=== PATIENT | male | born 1975 | race American Indian/Alaskan Native ===

== ENCOUNTER 2020-05-08 10:39 | Outpatient (CLI) | payer BC, OTHER ==
--- NOTE | 2020-05-08 12:34 | Fluoroscopy Report ---
UPPER GI HISTORY: FUNCTIONAL DYSPEPSIA. TECHNIQUE: Single and double contrast barium technique utilized to evaluate the esophagus, stomach, and duodenal C-loop. FINDINGS: To begin the exam, swallowing was evaluated in the lateral position under direct fluorosco py. Swallowing was normal. No mucosal irregularity, mass, mass effect, or critical stenosis. There were no abnormal tertiary c ontractions as seen with dysmotility. No hiatal hernia. Occasional episodes of gastroesophageal reflu x to the proximal esophagus was witnessed throughout this exam. IMPRESSION: [id number]-vr-[id number] gastroesophageal reflux. Fluoroscopic time: 2.6 minutes Number of fluoroscopic images: 14 Signer Name: Jasbir Braun Jr, MD Signed: 05/08/2020 12:29 PM Workstation Name: [id number]
== END 2020-05-08 10:40 | disposition home or self-care (01) ==
LOC: FLUORO 10:39
PROVIDERS: ATTEND Surgery
DX: K21.9 Gastro-esophageal reflux disease without esophagitis (principal)
CPT/HCPCS: 74246

== ENCOUNTER 2020-05-10 11:00 | Outpatient (CLI) | payer BC | END 2020-05-10 11:01 | disposition home or self-care (01) | LOC: SLR 11:00 | PROVIDERS: ATTEND Surgery | DX: G47.33 Obstructive sleep apnea (adult) (pediatric) (principal); R40.0 Somnolence; E66.9 Obesity, unspecified | CPT/HCPCS: G0399 ==

== ENCOUNTER 2020-06-05 09:56 | Day surgery (SDC) | payer BC ==
[2020-06-05] MEDS ORDERED: SODIUM CHLORIDE 0.9% 1000 ML 1,000 ML ONE (10:54)
[2020-06-05] MEDS ORDERED: SODIUM CHLORIDE 0.9% 1000 ML 1,000 ML IV SCH (11:15)
--- NOTE | 2020-06-05 11:36 | Anesthesia Day of Surgery ---
Anesthesia Day of Surgery - Day of Surgery Patient Examined: Yes Patient H&P Reviewed: Yes Patient is NPO: Yes
--- NOTE | 2020-06-05 11:37 | Anesthesia Consultation ---
Anesthesia Consult and Med Hx Date of service: 06/05/20 - Airway Anesthetic Teeth Evaluation: Good ROM Head & Neck: Adequate Mental/Hyoid Distance: Adequate Mallampati Class: Class II Intubation Access Assessment: Good - Pre-Operative Health Status ASA Pre-Surgery Classification: ASA3 Proposed Anesthetic Plan: MAC - Pulmonary Hx Smoking: No Hx Respiratory Symptoms: No Hx Sleep Apnea: No (Denies) - Cardiovascular System Hx Hypertension: Yes Hx Peripheral Vascular Disease: Yes (Enlarged aorta) - Gastrointestinal Hx Gastroesophageal Reflux Disease: No - Endocrine Hx Renal Disease: No Hx Liver Disease: No Hx Non-Insulin Dependent Diabetes: No - Hematic Hx Sickle Cell Disease: No - Other Systems Hx Obesity: Yes
[2020-06-05] MEDS ORDERED: propofoL 200 MG/20 ML VIAL IV ONE (13:36)
--- NOTE | 2020-06-05 13:36 | Discharge Summary ---
Providers - Providers Date of Admission: 06/05/2020 Date of discharge: 06/05/20 Attending physician: JEET MEDINA MD Primary care physician: HOME ENERGY CONSULTANT Hospitalization Reason for admission: egd as pre-op work prior to bariatric surgery Condition: Good Procedures: egd with biopsy Hospital course: Pt presented for a pre-op EGD as part of planning for up coming bariatric surgery. Procedure was uneventful and pt recovered well and was discharged to home. Disposition: DC-01 TO HOME OR SELFCARE Core Measure Documentation - Palliative Care Palliative Care/ Comfort Measures: Not Applicable - Core Measures Any of the following diagnoses?: none Exam - Physical Exam Narrative exam: unchanged from pre-op - Constitutional Vitals: Temp Pulse Resp BP Pulse Ox 98.4 F 70 14 135/76 98 06/05/20 10:55 06/05/20 10:55 06/05/20 10:55 06/05/20 10:55 06/05/20 10:55 Plan Activity: advance as tolerated Diet: low carbohydrate Follow up with: TAMIKA BRODY MD [Primary Care Provider] - 7 Days
--- NOTE | 2020-06-05 13:38 | Operative Report ---
Operative Report Operative Report: DATE: 06/05/2020 SURGERY: Upper endoscopy. SURGEON: Abimbola Clemente M.D. PROCEDURE: EGD with biopsy PRE OP DX: morbid obesity, GERD POST OP DX: morbid obesity, GERD TYPE OF ANESTHESIA: MAC. ESTIMATED BLOOD LOSS: None. COMPLICATIONS: None. SPECIMENS REMOVED: antral biopsy FINDINGS: 1. Small hiatal hernia. 2. antral gastritis INDICATIONS:INDICATION FOR PROCEDURE: Patient is a 45-year-old male with a long history of morbid obesity. he is planned to have a weight loss procedure and is here for preoperative planning EGD. PROCEDURE DETAILS: After consent was reviewed, patient was taken back to the operating room where patient was placed in the left lateral decubitus position and a bite block was placed in the mouth. After a time-out was called, MAC anesthesia was initiated. I then passed the endoscope into her oropharynx, into her esophagus, visualized the entire esophagus, which was all within normal limits. Z-line was noted to about 40cm from incisors. I then visualized the stomach and the first portion of the duodenum and there were no abnormalities I could clearly visualize with the exception of antral gastritis. A cold forceps biopsy of the antrum was taken and will be sent to pathology to evaluate for H.pylori. I then retroflexed the scope in the stomach and visualized the hiatus and I could see a small hiatal hernia. I then desufflated the stomach and removed the endoscope. Patient tolerated procedure well and was transferred to recovery room in good and stable condition.
[2020-06-05 14:21] VITALS: BP 122/76
--- NOTE | 2020-06-05 16:27 | Post Anesthesia Evaluation ---
- Post Anesthesia Evaluation Patient Participated: Yes Airway Patent: Yes Stable Respiratory Function: Yes Nausea/Vomiting: No Temp > 96.8F: Yes Pain Manageable: Yes Adequeate Hydration: Yes Anesthesia Complications: No Block Receding Appropriately: Not Applicable Patient on Ventilator: No
== END 2020-06-05 14:35 | disposition home or self-care (01) ==
LOC: GIO 09:56
PROVIDERS: ATTEND Surgery
DX: K21.9 Gastro-esophageal reflux disease without esophagitis (principal); E66.01 Morbid (severe) obesity due to excess calories; K29.70 Gastritis, unspecified, without bleeding; I73.9 Peripheral vascular disease, unspecified; K44.9 Diaphragmatic hernia without obstruction or gangrene; I10 Essential (primary) hypertension; Z88.0 Allergy status to penicillin; Z68.39 Body mass index [BMI] 39.0-39.9, adult; Z79.899 Other long term (current) drug therapy
CPT/HCPCS: 43239; 88305; 88342; J2704; J7030

== ENCOUNTER 2020-06-25 06:04 | Inpatient (IN) | payer BC, OTHER ==
[2020-06-20 10:47] LABS: Hematocrit 44.3 % (35.5-45.6); Hemoglobin 15.2 gm/dl (11.8-15.2); Mean Corpuscular HGB Conc 34 % (32-34); Mean Corpuscular Volume 88 fl (84-94); Platelet Count 235 K/mm3 (140-440); Red Blood Count 5.05 M/mm3 (3.65-5.03); Red Cell Distribution Width 15.1 % (13.2-15.2)
--- NOTE | 2020-06-20 10:59 | Anesthesia Consultation ---
Anesthesia Consult and Med Hx Date of service: 06/25/20 - Airway Anesthetic Teeth Evaluation: Good ROM Head & Neck: Adequate Mental/Hyoid Distance: Adequate Mallampati Class: Class II Intubation Access Assessment: Probably Good - Pulmonary Exam CTA: Yes - Cardiac Exam Cardiac Exam: RRR - Pre-Operative Health Status ASA Pre-Surgery Classification: ASA3 Proposed Anesthetic Plan: General - Pulmonary Hx Smoking: No Hx Respiratory Symptoms: No Hx Sleep Apnea: Yes (moderate GILBERT on recent sleep study, not yet started on CPAP) - Cardiovascular System Hx Hypertension: Yes Hx Heart Attack/AMI: No Hx Percutaneous Transluminal Coronary Angioplasty (PTCA): No Hx Cardia Arrhythmia: No Hx Peripheral Vascular Disease: Yes (report hx "enlarged aorta," currently being monitored) - Central Nervous System CVA: No - Gastrointestinal Hx Gastroesophageal Reflux Disease: No - Endocrine Hx Renal Disease: No Hx Liver Disease: No Hx Insulin Dependent Diabetes: No Hx Non-Insulin Dependent Diabetes: No Hx Thyroid Disease: No - Other Systems Hx Obesity: Yes (BMI 40) - Additional Comments Anesthesia Medical History Comments: No prior [place]. No FHx anesthetic complications. 04/2020: EKG NSR. Stress test neg for ischemia, >10mets achieved. 05/2020: normal PFTs w/ mild decreased MVV.
[2020-06-20 11:12] LABS: Alanine Aminotransferase 22 units/L (7-56); Albumin 4.4 g/dL (3.9-5); BUN/Creatinine Ratio 11; Blood Urea Nitrogen 15 mg/dL (9-20); Calcium 9.4 mg/dL (8.4-10.2); Hemolysis Index 19
[~2020-06-25 06:04] MED LIST: ACETAMINOPHEN 1,000 MG/100 ML BOTTLE IV SCH; ACETAMINOPHEN 325 MG/10.15 ML ORAL LIQD UNIT DOSE PO NR; ENOXAPARIN 40 MG/0.4 ML INJ SUB-Q NR; GABAPENTIN 500 MG/10 ML ORAL LIQD PO NR; MIDAZOLAM 2 MG/2 ML INJ IV NR; SCOPOLAMINE TRANSDERMAL PATCH 72 HR TD NR; metroNIDAZOLE/NS 500 MG/100 ML 500 MG/100 ML BAG IV NR
[2020-06-25] MEDS: LACTATED RINGERS 1,000 ML IV SCH ×3 (06:50→21:51)
--- NOTE | 2020-06-25 07:09 | Anesthesia Day of Surgery ---
Anesthesia Day of Surgery - Day of Surgery Patient Examined: Yes Patient H&P Reviewed: Yes Patient is NPO: Yes
[2020-06-25] MEDS ORDERED: MAGNESIUM SULFATE 2 GM/50 ML BAG IV ONE (07:20)
[2020-06-25] MEDS ORDERED: SUGAMMADEX SODIUM 200 MG/2 ML VIAL IV ONE ×2 (07:20→07:21)
[2020-06-25] MEDS ORDERED: SODIUM CHLORIDE P/F VIAL 10 ML 10 ML ONE ×2 (07:26→07:28)
[2020-06-25] MEDS ORDERED: KETAMINE/STERILE WATER 50 MG/ML SYRINGE ONE (07:27)
[2020-06-25] MEDS ORDERED: HYDROmorphone 1 MG/1 ML INJ IV PRN (07:30)
[2020-06-25] MEDS ORDERED: ONDANSETRON 4 MG/2 ML INJ IV PRN ×2 (07:30→11:00)
[2020-06-25] MEDS ORDERED: LIDOCAINE (1%) 10 MG/1 ML VIAL 20 ML MDV ONE (07:35)
[2020-06-25] MEDS ORDERED: BUPIVACAINE/PF (0.5%) 5 MG/1 ML 10 ML VIAL INFILTRATI ONE (07:36)
[2020-06-25] MEDS ORDERED: ROCURONIUM 50 MG/5 ML INJ IV ONE ×2 (07:56→10:00)
--- OUTSIDE RECORDS SUMMARY | 2020-06-25 08:25 | External Medical Summary ---
:1975 Author Organization [facility], [facility] Address [address] [place] [address] Care Team Providers Name Role Phone Abimbola Clemente Unavailable [phone] PROBLEMS Type Condition ICD9-CM VGO25-MP Onset Condition W/U Status Risk SNOM ED Notes Code Code Dates Status Code Problem Body mass Z68.41 Active confirmed 359526297 index [BMI]40.0-44. 9, adult Problem Functional K30 Active confirmed 9291115 dyspepsia Problem Gastro-esopha K21.9 Active confirmed 265838 005 geal reflux disease without esophagitis Problem Dietary Z71.3 Active confirmed 019947232 counseling and surveillance Problem Essential I10 Active confirmed 65538619 (primary) hypertension Problem Sleep G47.9 Active confirmed 99294875 disorder, unspecified Problem Morbid E66.01 Active confirmed 499425815 (severe) obesity due to excess calories ALLERGIES Allergen (clinical drug Drug/Non Drug Allergy Reaction Allergy Type Onset Date Status ingredient) documented on EMR penicillin V Penicillin rash Drug Allergy Active ENCOUNTERS from 1975 to 2020-06-22 Encounter Location Date Provider Diagnosis [facility] [address] [place], Abimbola Clemente [address]bi [address] (severe) [address] obesity due to excess of [place], [place] calorie s E66.01 ; [address] Essential (prim rehan) hypertension I1 0 and Gastro-esophage al reflux disease without esophagitis K21 .9 IMMUNIZATIONS No Information SOCIAL HISTORY Sex Assigned At : Social History Observation Description Sex Assigned At Unknown REASON FOR REFERRAL from 1975 to 2020-06-22 Diagnosis 1 Morbid (severe) obesity due to excess calories (E66.01) Diagnosis 2 Essential (primary) hyperten bunny (I10) Diagnosis 3 Functional dyspepsia (K30) Diagnosis 4 Gastro-esophageal reflux dis ease without esophagitis (K21.9) Diagnosis 5 Sleep disorder, unspecified (G47.9) Diagnosis 6 Low back pain (M54.5) Diagnosis 7 Dietary counseling and surve illance (Z71.3) Diagnosis 8 Body mass index [BMI]40.0-44 .9, adult (Z68.41) Referral Organization [facility] Referring Provider First Name Abimbola Referring Provider Last Name Bryn Referring Provider Specialty Surgery Referred Provider [facility], - Referral Priority Routine VITAL SIGNS Height 73 in May, Weight 308.3 lbs May, Temperature 98.0 degrees Fahrenheit May, BMI 40.6 kg/m2 May, Blood pressure systolic 170 mm Hg May, Blood pressure diastolic 93 mm Hg May, MEDICATIONS Medication SIG (Take, Route, Notes Start Date End Date Status Frequency, Duration) Hydrocodone-Acetaminoph 15 ml as needed Orally May,May, Active en 7.5-325 MG/15ML every 6 hrs for 7 days NIFEdipine ER 60 MG 1 tablet on an empty Active stomach Orally Once a day for 30 day(s) Nexium 40 MG 1 capsule Orally Once a May, Active day for 30 day(s) Zofran 4 MG 1-2 tablet Orally q 4-6 May, Active hr prn nausea for 30 day(s) Losartan Potassium 100 1 tablet Orally Once a Active MG day for 30 day(s) PROCEDURES No Information RESULTS No Results REASON FOR VISIT PreOp Sleeve MEDICAL (GENERAL) HISTORY Type Description Date Medical History htn Medical History dyspepsia Medical History snoring Medical History claustrophobia Medical History kidney stones Surgical History No know Surgical history Hospitalization History for kidney stones Goals Section No Information Health Concerns No Information MEDICAL EQUIPMENT No Information MENTAL STATUS No Information FUNCTIONAL STATUS No Information ASSESSMENTS Encounter Date Diagnosis Assessment Notes Treatment Notes Treatm ent Clinical Notes May, Morbid (severe) An hour was spent obesity due to with patient excess calories reinforcing diet, (ICD-10 - E66.01) vitamin requirements and lifestyle education, A quiz was administered and reviewed to verify understanding of intended procedure and post operative care. Consent forms were reviewed with patient and signed answering all questions, Pre-operative labs were ordered. May, Essential (primary) Should resolve or hypertension greatly improve (ICD-10 - I10) with weight loss after bariatric surgery May, Gastro-esophageal Should improve reflux disease after weight loss without esophagitis surgery. will be (ICD-10 - K21.9) started on PPI PLAN OF TREATMENT Medication Medication Name Sig Start Date Stop Date Hydrocodone-Acetaminophen 15 ml as needed Orally every May, 2 021 May, 7.5-325 MG/15ML 6 hrs for 7 days Zofran 4 MG 1-2 tablet Orally q 4-6 hr May, prn nausea for 30 day(s) Nexium 40 MG 1 capsule Orally Once a day May, for 30 day(s) Treatment Notes Assessment Notes Clinical Notes Morbid (severe) obesity due to An hour was spent with patien t excess calories reinforcing diet, vitamin requirements and lifestyle education, A quiz was administered and reviewed to verify understanding of intended procedure and post operative care. Consent forms were reviewed with patient and signed answering all questions, Pre-operative labs were ordered. Essential (primary) hypertension Should resolve or greatly i mprove with weight loss after bariatric surgery Gastro-esophageal reflux disease Should improve after weight loss without esophagitis surgery. will be started on PPI Referrals Referral Date Details Next Appt Details Provider Name:Abimbola Clemente, 2020-05- 9 07:30:00 AM, [address], [address], [place], [address], [phone] Insurance Providers Payer Name Payer Payer Insured Patient Coverage Coverage End Address Phone Name Relationship to Start Date Christos e Insured [employer] [address] [facility] [employer] [id number] [facility]
[2020-06-25] MEDS ORDERED: SODIUM CHLORIDE P/F VIAL 10 ML 30 ML ONE (08:36)
[2020-06-25] MEDS ORDERED: PHENYLEPHRINE/NS 1,000 MCG/10 ML SYRINGE (OR USE) IV ONE ×3 (08:47→09:26)
[2020-06-25] MEDS ORDERED: propofoL 200 MG/20 ML VIAL IV ONE ×3 (09:15→10:22)
[2020-06-25] MEDS ORDERED: ePHEDrine SULFATE 50 MG/1 ML INJ ONE (09:27)
[2020-06-25] MEDS ORDERED: LACTATED RINGERS 1,000 ML ONE (09:36)
[2020-06-25] MEDS ORDERED: BUPIVACAINE-EPINEPHRINE/PF 0.5%-1:200,000 (30 ML) VIAL INFILTRATI ONE (09:39)
[2020-06-25] MEDS ORDERED: .SODIUM CHLORIDE 0.9% IRRIG SOLN 3000 ML IR ONE (09:40)
[2020-06-25] MEDS ORDERED: SODIUM CHLORIDE 0.9% P/F 10 ML VIAL INFILTRATI ONE (09:40)
[2020-06-25] MEDS ORDERED: LIDOCAINE (1%) 10 MG/1 ML VIAL 20 ML MDV INFILTRATI ONE (09:40)
[2020-06-25] MEDS ORDERED: LIDOCAINE MPF (2%) 20 MG/1 ML VIAL 5 ML ONE (09:58)
[2020-06-25] MEDS ORDERED: ONDANSETRON 4 MG/2 ML INJ ONE (09:59)
[2020-06-25] MEDS ORDERED: dexAMETHasone 20 MG/5 ML VIAL ONE (09:59)
[2020-06-25] MEDS ORDERED: METOCLOPRAMIDE 10 MG/2 ML INJ IV PRN (10:36)
--- NOTE | 2020-06-25 10:49 | Operative Report ---
Operative Report Operative Report: DATE:06/25/2020 Surgeon: Abimbola Clemente MD Chemical Preparer surgeon: Mckinley Springer CSA MD Pre-op Dx: morbid obesity, hiatal hernia Post-op Dx: morbid obesity, hiatal hernia Procedure: 1. laparoscopic sleeve gastrectomy, 2. hiatal hernia repair Anesthesia: GETA and TAP block EBL: <10ml Specimen: gastric remnant Complication: none immediate Indication: 45 year old male with a history of morbid obesity . Pt is here for sleeve gastrectomy for weight loss to achieve healthier weight and improve or resolve his co-morbidities. He expressed understanding of the risks and benefits. PROCEDURE IN DETAIL: After consent was reviewed, patient was taken back to the operating room, where patient was placed supine on the bed with both arms out. The patient's legs were doubly strapped to the bed. Patient had a foot board in place. Patient had a body warmer placed by anesthesia. General anesthesia was induced with successful endotracheal intubation. Patient was then prepped and draped in normal sterile surgical fashion. After a time-out was called, I made a stab incision in the left subcostal area and placed a Veress needle through this incision and insufflated the abdomen to 18 mmHg pressure. I then counted down a handsbreadth below the xiphoid process in the midline and slightly left lateral injected local anesthetic and made about 1 cm transverse incision. I then used a 5-mm Optiview trocar to enter into the abdomen. There was no gross injury to any intra-abdominal structures. I then placed a 30-degree scope through this port and inspected the abdomen. I then placed a 8-mm port in the right upper quadrant, and 1 5mm in the epigastric area below the costovertebral angle. I then placed a 15-mm port about a handsbreadth in the right mid abdomen. After which a 5mm port was placed in left upper quadrant port along the anterior axillary line in a similar fashion. A liver retractor was placed to the epigastric port to elevate the left lateral lobe and liver. There was a moderate sized hiatal hernia with the GE junction above the level of the diaphragm appreciated that was accentuated with right and left crural dissection. Hiatal hernia sac was dissected 360 degress around from the crura until the GE junction was resting about 2cm below the level of the diaphragm without tension. Anterior and posterior crura-plasties were preformed using U- stitches with surgidac suture. The anterior gastric fat pad was excised. Starting approximately 6 cm proximal to the pylorus, using a LigaSure device the short gastrics were taken all the way to the left caroline. Once the lateral portion of the stomach was mobile anesthesia passed a 40 Bel[place]ian bougie along the medial aspect to act as a stent. Using serial firings of endoscopic stapler to gold, followed by 4 blue, the lateral portion of the stomach was transected making sure to did not close to the 2 cm to the incisura. All staple loads were supported with Ethicon buttress strips. The sleeve stomach was seen to be without kink obstruction or twisting. The pressure was decreased to 10 mmHg. The staple line was inspected for approximately 5 minutes. There was no significant bleeding appreciated except for a slight loose at the most distal portion of the staple line. Bleeding was minimal and easily controlled with minimal cautery. Tisseel was then sprayed along the entirety of the staple line. The liver retractor was removed. A TAP block was performed with 60ml of 0.25% marcaine along bilateral mid axillary lines starting from the subcostal region to just below the level of the umbilicus This was after the gastric remnant was grasped and pulled into the 15 mm trocar site. The stomach was extracted via the 15 mm trocar site. After the fascia had to be stretched with a Nory clamp to easily remove the stomach, the fascia was closed using a melvin aundrea device at the level of the fascia with an 0 PDS. trocars were removed under direct visualization. All skin incisions were closed with 4-0 Monocryl followed by Dermabond. Patient was awoken, extubated, and taken to recovery stable condition. All counts were correct.
[2020-06-25] MEDS ORDERED: hydrALAZINE 20 MG/1 ML INJ IV PRN (11:00)
[2020-06-25] MEDS ORDERED: SIMETHICONE 80 MG CHEW TAB PO PRN (11:00)
[2020-06-25] MEDS: HYDROmorphone 1 MG/1 ML INJ IV PRN ×2 (11:08→11:29)
[2020-06-25] MEDS ORDERED: ACETAMINOPHEN 1,000 MG/100 ML BOTTLE IV SCH (13:12)
[2020-06-25] MEDS: ACETAMINOPHEN IV 1,000 MG/100 ML BOTTLE IV SCH ×2 (14:48→21:32)
[2020-06-25] MEDS: MORPHINE 2 MG/1 ML INJ IV PRN ×2 (14:49→20:11)
[2020-06-25] MEDS: metroNIDAZOLE/NS 500 MG/100 ML 500 MG/100 ML BAG IV SCH ×2 (16:04→23:28)
[2020-06-25] MEDS: SCOPOLAMINE TRANSDERMAL PATCH 72 HR TD SCH ×2 (19:46→19:47)
[2020-06-25] MEDS: PANTOPRAZOLE 40 MG INJ IV SCH (20:23)
[2020-06-26] MEDS: ACETAMINOPHEN IV 1,000 MG/100 ML BOTTLE IV SCH (02:58)
[2020-06-26] MEDS: LACTATED RINGERS 1,000 ML IV SCH ×3 (05:21→22:21)
[2020-06-26 07:02] LABS: Basophils # (Auto) 0.1 K/mm3 (0.0-0.1); Basophils % (Auto) 0.6 % (0.0-1.8); Eosinophils % (Auto) 0.3 % (0.0-4.3); Hematocrit 38.8 % (35.5-45.6); Hemoglobin 13.3 gm/dl (11.8-15.2); Lymphocytes # (Auto) 1.3 K/mm3 (1.2-5.4); Lymphocytes % (Auto) 11.9 % (13.4-35.0); Mean Corpuscular HGB Conc 34 % (32-34); Mean Corpuscular Volume 88 fl (84-94); Monocytes % (Auto) 9.2 % (0.0-7.3); Platelet Count 247 K/mm3 (140-440); Red Blood Count 4.41 M/mm3 (3.65-5.03); Red Cell Distribution Width 14.7 % (13.2-15.2)
[2020-06-26 07:46] LABS: Alanine Aminotransferase 185 units/L (7-56); Albumin 3.7 g/dL (3.9-5); BUN/Creatinine Ratio 9; Blood Urea Nitrogen 12 mg/dL (9-20); Calcium 8.8 mg/dL (8.4-10.2); Hemolysis Index 26
[2020-06-26] MEDS ORDERED: NON-FORMULARY EACH (Losartan 100 MG) PO SCH (10:00)
[2020-06-26] MEDS ORDERED: NON-FORMULARY EACH (Nifedipine Er 60 MG) PO SCH (10:00)
[2020-06-26] MEDS: metroNIDAZOLE/NS 500 MG/100 ML 500 MG/100 ML BAG IV SCH (10:38)
--- NOTE | 2020-06-26 11:04 | Progress Note ---
Assessment and Plan POD#1 s/p lap gastric sleeve with hiatal hernia repair. Afebrile and stable showing no clinical signs of leak or bleeding. Currently not taking enough fluids PO to feel comfortable discharging today. Will encourage further PO intake and ambulation and likely d/c/ tomorrow. Subjective Date of service: 06/26/20 Patient Reports: Positive: no new complaints, feels better, pain is less, tolerating liquids well (no acute events overnight) Objective Vital Signs - 12hr 06/25/20 06/25/20 06/26/20 23:45 23:50 05:17 Temperature 98.8 F 99.0 F Pulse Rate 86 83 Respiratory 18 18 Rate Blood Pressure 122/59 122/62 O2 Sat by Pulse 95 92 94 Oximetry 06/26/20 07:08 Temperature 98.9 F Pulse Rate 77 Respiratory 16 Rate Blood Pressure 118/56 O2 Sat by Pulse 93 Oximetry - General physical appearance well developed, no distress, no pain, obese - Respiratory normal expansion, normal respiratory effort - Abdomen soft, other (incisions c/d/i, appropriately tender to palpation) - Labs 06/26/20 06:40 06/26/20 06:40 Diabetes panel 06/26/20 Range/Units 06:40 Sodium 138 (137-145) mmol/L Potassium 4.3 (3.6-5.0) mmol/L Chloride 105.8 (98-107) mmol/L Carbon Dioxide 25 (22-30) mmol/L BUN 12 (9-20) mg/dL Creatinine 1.4 H (0.8-1.3) mg/dL Glucose 101 H (75-100) mg/dL Calcium 8.8 (8.4-10.2) mg/dL AST 208 H (5-40) units/L ALT 185 H (7-56) units/L Alkaline Phosphatase 64 (35-129) units/L Total Protein 6.8 (6.3-8.2) g/dL Albumin 3.7 L (3.9-5) g/dL Calcium panel 06/26/20 Range/Units 06:40 Calcium 8.8 (8.4-10.2) mg/dL Albumin 3.7 L (3.9-5) g/dL Pituitary panel 06/26/20 Range/Units 06:40 Sodium 138 (137-145) mmol/L Potassium 4.3 (3.6-5.0) mmol/L Chloride 105.8 (98-107) mmol/L Carbon Dioxide 25 (22-30) mmol/L BUN 12 (9-20) mg/dL Creatinine 1.4 H (0.8-1.3) mg/dL Glucose 101 H (75-100) mg/dL Calcium 8.8 (8.4-10.2) mg/dL Adrenal panel 06/26/20 Range/Units 06:40 Sodium 138 (137-145) mmol/L Potassium 4.3 (3.6-5.0) mmol/L Chloride 105.8 (98-107) mmol/L Carbon Dioxide 25 (22-30) mmol/L BUN 12 (9-20) mg/dL Creatinine 1.4 H (0.8-1.3) mg/dL Glucose 101 H (75-100) mg/dL Calcium 8.8 (8.4-10.2) mg/dL Total Bilirubin 0.50 (0.1-1.2) mg/dL AST 208 H (5-40) units/L ALT 185 H (7-56) units/L Alkaline Phosphatase 64 (35-129) units/L Total Protein 6.8 (6.3-8.2) g/dL Albumin 3.7 L (3.9-5) g/dL
[2020-06-26] MEDS: PANTOPRAZOLE 40 MG INJ IV SCH (11:40)
[2020-06-26] MEDS: LOSARTAN 50 MG TAB PO SCH (11:41)
[2020-06-26] MEDS: ENOXAPARIN 40 MG/0.4 ML INJ SUB-Q SCH (11:41)
[2020-06-26] MEDS: NIFEdipine XL 60 MG TAB PO SCH (11:45)
[2020-06-26] MEDS: MORPHINE 2 MG/1 ML INJ IV PRN (11:46)
[2020-06-27 07:19] LABS: Basophils # (Auto) 0.1 K/mm3 (0.0-0.1); Basophils % (Auto) 0.7 % (0.0-1.8); Eosinophils % (Auto) 0.3 % (0.0-4.3); Hematocrit 41.9 % (35.5-45.6); Hemoglobin 14.2 gm/dl (11.8-15.2); Lymphocytes # (Auto) 1.5 K/mm3 (1.2-5.4); Lymphocytes % (Auto) 18.2 % (13.4-35.0); Mean Corpuscular HGB Conc 34 % (32-34); Mean Corpuscular Volume 87 fl (84-94); Monocytes # (Auto) 0.9 K/mm3 (0.0-0.8); Monocytes % (Auto) 11.3 % (0.0-7.3); Platelet Count 223 K/mm3 (140-440); Red Blood Count 4.81 M/mm3 (3.65-5.03); Red Cell Distribution Width 14.6 % (13.2-15.2)
[2020-06-27] MEDS ORDERED: PANTOPRAZOLE 40 MG TAB PO SCH (07:30)
[2020-06-27 07:42] LABS: Alanine Aminotransferase 394 units/L (7-56); Albumin 3.8 g/dL (3.9-5); BUN/Creatinine Ratio 8; Blood Urea Nitrogen 11 mg/dL (9-20); Calcium 8.7 mg/dL (8.4-10.2); Hemolysis Index 5
[2020-06-27] MEDS: LACTATED RINGERS 1,000 ML IV SCH (09:03)
[2020-06-27] MEDS: ENOXAPARIN 40 MG/0.4 ML INJ SUB-Q SCH (09:03)
[2020-06-27] MEDS: LOSARTAN 50 MG TAB PO SCH (09:07)
[2020-06-27] MEDS: NIFEdipine XL 60 MG TAB PO SCH (09:08)
--- NOTE | 2020-06-27 10:52 | Discharge Summary ---
Providers - Providers Date of Admission: 06/25/20 06:22 Date of discharge: 06/27/20 Attending physician: JEET MEDINA MD 06/25/20 10:36 Physical Therapy Evaluation and Treat [CONS] Routine Comment: Reason For Exam: post op bariatric surgery Primary care physician: TECHNOLOGY TRAINER Hospitalization Reason for admission: s/p lap gastric sleeve and hiatal hernia Condition: Good Procedures: lap gastric sleeve with hiatal hernia repair Hospital course: Pt was admitted after an uneventful laparoscopic sleeve gastrectomy with hiatal hernia repair. He did well post op, remaining afebrile and stable but did have some elevation of AST & ALT. All other liver enzymes were normal. This acute elevation was thought to be due to liver compression from the liver retractor during the case (pt had a large, brittle liver with fatty changes). He was tolerating liquids without nausea or vomiting but was taking very small sips due to discomfort. His oral intake improved by POD#2. He was ambulating well and showed no clinical signs of leak or bleeding. He was discharged to home on POD#2. He was given an order to get his liver function enzymes checked in two days, and was given a new prescription for pain that did not contain acetaminophen. Disposition: DC-01 TO HOME OR SELFCARE Final Discharge Diagnosis (Prints w/discharge instructions): morbid obesity Core Measure Documentation - Palliative Care Palliative Care/ Comfort Measures: Not Applicable - Core Measures Any of the following diagnoses?: none Exam - Constitutional Vitals: Temp Pulse Resp BP Pulse Ox 98.9 F 69 20 107/51 96 06/27/20 07:29 06/27/20 07:29 06/27/20 07:29 06/27/20 07:29 06/27/20 07:29 General appearance: Present: no acute distress, obese - Respiratory Respiratory effort: normal - Cardiovascular Heart Sounds: Present: S1 & S2 - Extremities Extremities: no ischemia - Abdominal General gastrointestinal: Present: soft, non-tender, distended, other (incisions c/d/i, appropriately tender to palpation) Plan Activity: advance as tolerated Diet: clear liquids Follow up with: PRIMARY CAREMD [Primary Care Provider] - 7 Days
[2020-06-27 11:33] VITALS: BP 135/66
== END 2020-06-27 11:50 | disposition home or self-care (01) | DRG 621 ==
LOC: 3A 06:22 → 3B-SURG 11:12
PROVIDERS: ADMIT Surgery; ATTEND Surgery
PROC: 0DB64Z3 Excision of Stomach, Percutaneous Endoscopic Approach, Vertical (ICD-10-PCS; principal; 2020-06-25)
PROC: 0BQT4ZZ Repair Diaphragm, Percutaneous Endoscopic Approach (ICD-10-PCS; 2020-06-25)
DX: E66.01 Morbid (severe) obesity due to excess calories (principal); G47.30 Sleep apnea, unspecified; I10 Essential (primary) hypertension; K21.9 Gastro-esophageal reflux disease without esophagitis; Z20.822 Contact with and (suspected) exposure to COVID-19; K44.9 Diaphragmatic hernia without obstruction or gangrene; I73.9 Peripheral vascular disease, unspecified; Z68.41 Body mass index [BMI] 40.0-44.9, adult; Z88.0 Allergy status to penicillin; Z87.442 Personal history of urinary calculi; Z79.899 Other long term (current) drug therapy; Z79.891 Long term (current) use of opiate analgesic
CPT/HCPCS: 36415; 80053; 85025; 85027; 88307; G0378; A4217; C9113; J0131; J1100; J1170; J1650; J2250; J2270; J2370; J2405; J2704; J3475; J3490; J7120; U0003